=== PATIENT | female | born 1975 | race Caucasian/White ===

== ENCOUNTER 2021-11-24 06:16 | Emergency (ER) | payer OTHER, SELFPAY ==
[2021-11-24 06:24] VITALS: BMI 29.5
[2021-11-24 06:26] VITALS: BP 156/87; PULSE 70; RESP 15; TEMP 36.3; O2SAT 100
--- NOTE | 2021-11-24 06:36 | XRR_ITS ---
PROCEDURE INFORMATION: Exam: XR Chest Exam date and time: 11/24/2021 6:49 AM Age: 46 years old Clinical indication: Angina; Patient HX: Chest tightness x 4 days; Additional info: Chest pain TECHNIQUE: Imaging protocol: Radiologic exam of the chest. Views: 1 view. COMPARISON: CR Chest 1 [place] [id number] 07/01/2018 10:02 AM FINDINGS: Lungs: Unremarkable. No consolidation. Pleural spaces: Unremarkable. No pleural effusion. No pneumothorax. Heart/Mediastinum: Unremarkable. No cardiomegaly. Bones/joints: Unremarkable. XR/XR chest 1V portable [id number] IMPRESSION: No acute findings.
--- NOTE | 2021-11-24 06:36 | ECG_ITS ---
[facility] Test Date: 2021-11-24 Pat Name: Sarahy Singh Department: Room: Gender: Female [place]: : 1975 Requested By: Brendan White Order Number: [id number] Emi MD: Gi Nye M.D. Measurements Intervals [place] Rate: 73 P: 48 RI: 155 QRS: 65 QRSD: 86 T: 63 QT: 397 QTc: 439 Interpretive Statements SINUS RHYTHM Compared to ECG 07/01/2018 09:03:43 No significant changes Electronically Signed On 11-24-2021 21:23:01 CDT by Gi Nye M.D. [id number]
--- NOTE | 2021-11-24 06:45 | ED_ITS ---
HPI - Chest Pain General: Chief Complaint: Chest Pain Stated Complaint: Tightness in chest Time Seen by Provider: 11/24/21 06:32 Source: patient Mode of arrival: ambulatory Limitations: no limitations History of Present Illness: 46-year-old female presents emergency room complaining of chest tightness that goes into her left shoulder and arms been going on for the last 2 days. She has had similar episodes in the past. She has no personal or family history of early coronary disease. Patient is not diabetic. She states pain actually began in her back is like a sore area that she had someone massage that area is still exquisitely tender and then began to radiate around through the axilla into the left upper chest. She has not noticed anything beyond palpation or use of upper extremities that exacerbates or relieves. I can reproduce the pain to an extent with palpation on the lateral edge of the scapula no reproducible pain with palpation on the anterior axillary line or anterior chest wall. No associated shortness of breath or diaphoresis. MD complaint: chest pain Onset (ago): day(s) Timing of current episode: episodic Prior episodes: Yes Onset: during rest Pain location: other (Left upper back lateral edge left scapula) Pain radiation: other (Left anterior axillary line superiorly) Severity: moderate Quality: aching Relieving factors: nothing Exacerbating factors: palpation Associated symptoms: Deny abdominal pain, diaphoresis, dyspnea, fever(s), leg edema, nausea, palpitations, sense of impending doom, syncope or vomiting Treatment prior to arrival: none Review of Systems Const: Denies: fever(s), chills, fatigue, malaise or diaphoresis ENMT: Denies: throat pain, ear or mastoid pain, nasal discharge or nasal congestion Card: Reports: chest pain; Denies: palpitations or syncope Resp: Denies: dyspnea GI: Denies: abdominal pain, nausea or vomiting : Denies: flank pain, difficulty voiding, dysuria, urinary frequency or urinary urgency Skin/Breast: Denies: rash or pruritus [facility] PFSH: Medical History (Updated 11/24/21 @ 10:01 by Brendan Juárez DO) No significant past medical history Surgical History (Updated 11/24/21 @ 08:03 by Brendan Juárez DO) No significant past surgical history Social History (Updated 11/24/21 @ 08:03 by RENAN Martinez Smoking and tobacco status: never smoked Alcohol intake: never Physical Exam Const: COMMON NORMALS: no acute distress GENERAL APPEARANCE: cooperative and comfortable ORIENTATION/CONSCIOUSNESS: Yes awake, Yes oriented to person, Yes oriented to place and Yes oriented to time HENMT: COMMON NORMALS: normocephalic, atraumatic and hearing grossly normal bilaterally HEAD & SCALP: normocephalic and atraumatic Neck/C-Spine: COMMON NORMALS: no JVD Resp: COMMON NORMALS: normal respiratory effort, No retractions, No use of accessory muscles and clear to auscultation bilaterally AUSCULTATION: clear to auscultation bilaterally Cardio: COMMON NORMALS: no JVD, regular rate, regular rhythm and No murmurs present (Cardio) RATE: regular rate RHYTHM: regular rhythm GI: COMMON NORMALS: Soft to palpation and No hepatosplenomegaly present AUSCULTATION: Yes normoactive bowel sounds PALPATION: Yes Soft to palpation, No Tenderness to palpation present (GI), No Guarding due to palpation present (GI) and Yes No hepatosplenomegaly present Extremity: COMMON NORMALS: normal to inspection, capillary refill normal, no clubbing, cyanosis or edema, no calf tenderness and no pedal edema Neuro: SENSORIUM/ORIENTATION: Yes oriented to person, Yes oriented to place and Yes oriented to time Skin: COMMON NORMALS: no rashes or lesions noted GENERAL SKIN EXAM: no rash es or lesions noted Course Vital Signs: Vital signs: Vital Signs Temperature 97.4 F L 11/24/21 06:26 Pulse Rate 68 11/24/21 10:32 Respiratory Rate 16 11/24/21 10:32 Blood Pressure 140/85 11/24/21 10:32 Pulse Oximetry 99 11/24/21 10:32 MDM - Chest Pain Medical Decision Making Labs imaging and EKG reviewed. No acute EKG changes. Troponin delta is not positive. Pain symptoms are reproducible at this point. We will going get her discharged home and have her set up for outpatient sestamibi stress test. Also she has anemia recommend follow-up with primary care doctor evaluate further. Medical Records I reviewed the patient's medical records. Lab Data I reviewed the patient's lab results. : 11/24/21 06:30 11/24/21 06:30 Radiology Impressions Chest X-Ray 11/24/21 06:36 IMPRESSION: No acute findings. Laboratory Results WBC 5.1 10^3/uL (4.0-10.0) 11/24/21 06:30 RBC 4.13 10^6/uL (4.1-5.3) 11/24/21 06:30 Hgb 8.0 g/dL (11.5-15.3) L 11/24/21 06:30 Hct 27.9 % (37.0-47.0) L 11/24/21 06:30 MCV 67.6 fl (81-99) L 11/24/21 06:30 MCH 19.4 pg (28.0-34.0) L 11/24/21 06:30 MCHC 28.7 g/dL (30.0-36.0) L 11/24/21 06:30 RDW 17.1 % (12.1-15.1) H 11/24/21 06:30 Plt Count 335 10^3/cmm (130-400) 11/24/21 06:30 MPV 9.8 fL (7.4-10.4) 11/24/21 06:30 Neut % (Auto) 63.6 % 11/24/21 06:30 Lymph % (Auto) 24.1 % 11/24/21 06:30 [place] % (Auto) 10.9 % 11/24/21 06:30 Eos % (Auto) 0.8 % 11/24/21 06:30 Baso % (Auto) 0.2 % 11/24/21 06:30 Neut # (Auto) 3.27 10^3/uL (1.8-7.7) 11/24/21 06:30 Lymph # (Auto) 1.2 10^3/uL (0.8-4.8) 11/24/21 06:30 [place] # (Auto) 0.6 10^3/uL (0.2-0.9) 11/24/21 06:30 Eos # (Auto) 0.0 10^3/uL (0.0-0.8) 11/24/21 06:30 Baso # (Auto) 0.0 10^3/uL (0.0-0.1) 11/24/21 06:30 Nucleated RBC % (auto) 0 % 11/24/21 06:30 Nucleated RBCs # 0.0 /100WBC 11/24/21 06:30 Sodium 135 mmol/L (136-145) L 11/24/21 06:30 Potassium 3.8 mmol/L (3.5-5.1) 11/24/21 06:30 Chloride 102 mmol/L (98-107) 11/24/21 06:30 Carbon Dioxide 23 mmol/L (22-29) 11/24/21 06:30 Anion Gap 13.8 (5-19) 11/24/21 06:30 BUN 16 mg/dL (6-20) 11/24/21 06:30 Creatinine 0.7 mg/dL (0.5-0.9) 11/24/21 06:30 GFR Calculation 90.5 mL/min (90-130) 11/24/21 06:30 Glucose 92 mg/dL (65-115) 11/24/21 06:30 Calculated Osmolality 281 mOsm/kg (285-295) L 11/24/21 06:30 Calcium 8.5 mg/dL (8.5-10.5) 11/24/21 06:30 Total Bilirubin 0.3 mg/dL (0.15-1.2) 11/24/21 06:30 AST 12 U/L (0-32) 11/24/21 06:30 ALT 12 U/L (0-33) 11/24/21 06:30 Alkaline Phosphatase 76 IU/L (35-105) 11/24/21 06:30 Troponin T Baseline 6 ng/L (0-10) 11/24/21 06:30 Troponin T 120 Minute 6.00 ng/L (0-10) 11/24/21 08:28 Delta Troponin T 0 ABS# (0-10) 11/24/21 08:28 Total Protein 7.0 g/dL (6.6-8.7) 11/24/21 06:30 Albumin 4.2 g/dL (3.5-5.2) 11/24/21 06:30 Globulin 2.8 g/dL (1.3-4.6) 11/24/21 06:30 Discharge Plan Discharge Patient Disposition: Home Clinical Impression: Atypical chest pain, Microcytic anemia Condition: Stable Discharge Orders: Discharge ED (Routine); Ordered 11/24/21 Ordered By: Brendan Juárez Discharge Diet: Usual diet Discharge Activity: Limit activity as instructed Patient Instructions: Opioid Safety Activity Restrictions/Additional Instructions: Avoid strenuous activity. Follow-up with your primary care doctor to further evaluate the anemia. manager alliance will make arrangements for an outpatient Lexiscan sestamibi stress test. Return if you have further problems. Coding Level of Care Code ED Pump Rebuilder for Chg Fwd Exam Comprehensive
[2021-11-24 06:56] VITALS: BP 140/85; PULSE 69; RESP 16; O2SAT 100
[2021-11-24 06:56] LABS: Basophils % 0.2 %; Eosinophils % 0.8 %; Hematocrit 27.9 % (37.0-47.0); Lymphocytes # 1.2 10^3/uL (0.8-4.8); Lymphocytes % 24.1 %; Mean Corpuscular HGB Conc 28.7 g/dL (30.0-36.0); Mean Corpuscular Hemoglobin 19.4 pg (28.0-34.0); Mean Corpuscular Volume 67.6 fl (81-99); Mean Platelet Volume 9.8 fL (7.4-10.4); Monocytes # 0.6 10^3/uL (0.2-0.9); Monocytes % 10.9 %; Neutrophils # 3.27 10^3/uL (1.8-7.7); Neutrophils % 63.6 %; Nucleated Red Blood Cells % 0 %; Platelet Count 335 10^3/cmm (130-400); Red Blood Count 4.13 10^6/uL (4.1-5.3); Red Cell Distribution Width 17.1 % (12.1-15.1); White Blood Count 5.1 10^3/uL (4.0-10.0)
[2021-11-24 06:58] LABS: Alanine Aminotransferase 12 U/L (0-33); Albumin Level 4.2 g/dL (3.5-5.2); Alkaline Phosphatase 76 IU/L (35-105); Anion Gap 13.8 (5-19); Aspartate Amino Transferase 12 U/L (0-32); Blood Urea Nitrogen 16 mg/dL (6-20); Calcium 8.5 mg/dL (8.5-10.5); Carbon Dioxide 23 mmol/L (22-29); Chloride 102 mmol/L (98-107); Globulin 2.8 g/dL (1.3-4.6); Glomerular Filtration Rate 90.5 mL/min (90-130); Glucose 92 mg/dL (65-115); Osmolality Calculated 281 mOsm/kg (285-295); Potassium 3.8 mmol/L (3.5-5.1); Sodium 135 mmol/L (136-145); Total Bilirubin 0.3 mg/dL (0.15-1.2)
[2021-11-24 07:01] LABS: Troponin(5th) Baseline 6 ng/L (0-10)
[2021-11-24] MEDS: aspirin 81 mg Chew Tablet 324 MG PO (07:21)
--- NOTE | 2021-11-24 08:13 | PC.NURSE ---
EKG done at 0810 and shown to ER doctor
--- NOTE | 2021-11-24 08:36 | ECG_ITS ---
[facility] Test Date: 2021-11-24 Pat Name: Sarahy Singh Department: Room: Gender: Female Direct Care Professional: : 1975 Requested By: Brendan White Order Number: [id number] Emi MD: Gi Nye M.D. Measurements Intervals [place] Rate: 66 P: 55 [place]: 176 QRS: 68 QRSD: 90 T: 64 QT: 443 QTc: 465 Interpretive Statements SINUS RHYTHM WITH SINUS ARRHYTHMIA Compared to ECG 11/24/2021 06:26:53 No significant changes Electronically Signed On 11-24-2021 21:30:48 CDT by Gi Nye M.D. [email or web address]/store/[id number]
[2021-11-24 09:32] VITALS: BP 140/85; PULSE 68; RESP 16; O2SAT 99
[2021-11-24 09:55] LABS: Troponin 5 2HR Delta 0 ABS# (0-10)
[2021-11-24 10:32] VITALS: BP 140/85; PULSE 68; RESP 16; O2SAT 99
--- NOTE | 2021-11-28 17:15 | DCPLANNER ---
sr. manager had message to schedule an outpatient stress for patient. sr. manager called patient to confirm that patient wanted the stress test, and to confirm who patient sees for primary care. Patient stated that she sees Dr. Thomas for primary care, and that she discussed her ER visit with her primary care physician and it was decided that patient does not need the stress test at this time.
== END 2021-11-24 10:35 | disposition home or self-care (01) ==
PROVIDERS: Emergency Provider Family Medicine
DX: R07.89 Other chest pain (principal); D50.9 Iron deficiency anemia, unspecified
CPT/HCPCS: 71045; 80053; 84484; 85025; 93005; 99285

== ENCOUNTER → 2022-01-14 07:55 | Day surgery (SDC) | payer OTHER, SELFPAY ==
[2022-01-14 08:03] VITALS: BP 154/82; PULSE 78; RESP 18; TEMP 36.1; O2SAT 100
[2022-01-14] MEDS: ferric carboxy (IVPB) 750 MG in sodium chloride 0.9% (100 ml) 100 ML 345 MG IV (08:44)
== END ==
PROVIDERS: PCP Family Medicine; Visit Provider Family Medicine
DX: D50.9 Iron deficiency anemia, unspecified (principal)
CPT/HCPCS: 96365; J1439

== ENCOUNTER → 2022-01-21 07:52 | Day surgery (SDC) | payer OTHER, SELFPAY ==
[2022-01-21] MEDS: ferric carboxy (IVPB) 750 MG in sodium chloride 0.9% (100 ml) 100 ML 345 MG IV (08:00)
[2022-01-21 08:42] VITALS: BP 149/85; PULSE 64; RESP 18; TEMP 36.1; O2SAT 99
== END ==
LOC: GILAB 07:53
PROVIDERS: PCP Family Medicine; Visit Provider Family Medicine
DX: D50.9 Iron deficiency anemia, unspecified (principal)
CPT/HCPCS: 96365; J1439

== ENCOUNTER 2022-07-11 20:10 | Emergency (ER) | payer OTHER, SELFPAY ==
[2022-07-11 20:24] VITALS: BP 149/94; PULSE 69; RESP 18; TEMP 36.3; O2SAT 96; BMI 32.5
--- NOTE | 2022-07-11 21:07 | XRR_ITS ---
PROCEDURE INFORMATION: Exam: XR Thoracic Spine Exam date and time: 07/11/2022 9:53 PM Age: 47 years old Clinical indication: Pain in thoracic spine; Patient HX: Mid back pain after bending over TECHNIQUE: Imaging protocol: Radiologic exam of the thoracic spine. Views: 3 views. COMPARISON: CR XR chest 1V portable [id number] 11/24/2021 6:49 AM FINDINGS: Bones/joints: There is no acute fracture or subluxation by plain radiographs. Mild intervertebral disc space narrowing at multiple levels. Minimal disc margin spurring. Soft tissues: No significant acute finding. XR/XR thoracic spine 2V [id number] IMPRESSION: 1. No acute fracture or subluxation. 2. Other details discussed above.
[2022-07-11] MEDS: oxyCODONE-APAP 5-325 mg Tablet 2 TAB PO (21:16)
--- NOTE | 2022-07-11 21:42 | W.ED.BACK ---
HPI - Back Pain/Injury General: Chief Complaint: Back Pain/Injury Stated Complaint: back pain Time Seen by Provider: 07/11/22 20:40 Source: patient History of Present Illness: 47-year-old female with mid lower back pain after bending over to set her Down earlier in the evening. She has had back pain on and off all of her life she says. Pain is localized to the lower thoracic spine on the left greater than right side. She felt a pulling sensation when this happened. She took a methocarbamol at home without any relief. She denies any fever. No change in urine. No other symptoms. No radicular pain into her legs, no paresthesias, no weakness. MD elicited complaint: back pain and back injury Pertinent past history: prior back pain Onset (ago): hour(s) Timing: constant Severity: moderate Similar Symptoms Previously: Yes Quality: aching and spasming Location: thoracic spine Radiation: none Exacerbating factors: movement Relieving factors: none Context: bending Associated symptoms: Deny abdominal pain, arthralgias, chills, difficulty walking, dysuria, fatigue, fever(s), nausea, numbness, syncope, tingling/numbness/burning, vomiting or weakness Review of Systems Const: Denies: fever(s), chills or fatigue Card: Denies: syncope GI: Denies: abdominal pain, nausea or vomiting : Denies: flank pain, difficulty voiding or dysuria Neuro: Denies: difficulty walking [facility] PFSH: Medical History No significant past medical history Surgical History No significant past surgical history Social History Smoking and tobacco status: never smoked Alcohol intake: never Physical Exam Const: COMMON NORMALS: no acute distress GENERAL APPEARANCE: cooperative; not ill appearing and not frail appearing HENMT: COMMON NORMALS: normocephalic, atraumatic and Normal external nose present HEAD & SCALP: normocephalic and atraumatic FACE & SINUS: normal facial exam and face symmetric NOSE: Normal external nose present Eye: COMMON NORMALS: Equal, round and reactive pupils present and EOMs intact bilaterally PUPIL: Yes Equal, round and reactive pupils present Neck/C-Spine: GENERAL: Yes trachea midline Chest: CHEST: Yes Symmetrical chest wall rise Resp: COMMON NORMALS: normal respiratory effort, No retractions and No use of accessory muscles Cardio: COMMON NORMALS: regular rate and regular rhythm RATE: regular rate RHYTHM: regular rhythm GI: INSPECTION: Yes normal to inspection Back/Pelvis: OTHER: Examination reveals minimally reproducible tenderness to the thoracolumbar spinal musculature. There is no midline tenderness. Straight leg raise test is negative bilaterally. No deformity. Extremity: COMMON NORMALS: no pedal edema Neuro: HEMALATHA COMA SCALE: document GCS findings [place] coma scale eye opening: Spontaneous Hemalatha coma scale verbal response: Orientated [place] coma scale motor response: Obey commands [place] coma scale total score: 15 SENSORY EXAM: Yes extremities (intact) Psych: COMMON NORMALS: speech normal SPEECH: Yes normal speech Course Vital Signs: Vital signs: Vital Signs Temperature 97.4 F L 07/11/22 20:24 Pulse Rate 78 07/11/22 22:53 Respiratory Rate 18 07/11/22 22:53 Blood Pressure 138/75 07/11/22 22:53 Pulse Oximetry 97 07/11/22 22:53 Oxygen Delivery Me thod 07/11/22 20:24 MDM - Back Pain/Injury Medical Decision Making No radicular symptoms. No neurological symptoms. X-ray does not reveal any acute deformity such as a compression fracture or significant disc space loss. Labs Radiology Impressions Thoracic Spine X-Ray 07/11/22 21:07 IMPRESSION: 1. No acute fracture or subluxation. 2. Other details discussed above. Discharge Plan Discharge Patient Disposition: Home Clinical Impression: Thoracic myofascial strain Condition: Stable Prescriptions: New hydrocodone-acetaminophen 5-325 mg tablet 1 tab PO Q8H PRN (Reason: pain) Qty: 7 0RF ketorolac 10 mg tablet 10 mg PO TID PRN (Reason: pain) Qty: 10 0RF No Action valacyclovir 1 gram tablet 1,000 mg PO Q8H 7 Days Qty: 21 0RF pantoprazole 40 mg tablet,delayed release (DR/EC) 40 mg PO DAILY ferrous gluconate 324 mg (38 mg iron) tablet 324 mg PO DAILY Discharge Orders: Discharge ED (Routine); Ordered 07/11/22 Ordered By: Ignacio Gallegos Referrals: David Thomas MD [Primary Care Provider] - 1-3 days Patient Instructions: Thoracic Pain (ED), Opioid Safety, Pain Management Activity Restrictions/Additional Instructions: Return for fever, any other new or concerning symptoms. See your doctor early this week. Medication as directed. They will help the best in alternating fashion. Coding Level of Care Code ED Furnace Clerk for Chg Fwd Exam Comprehensive
[2022-07-11 22:53] VITALS: BP 138/75; PULSE 78; RESP 18; O2SAT 97
== END 2022-07-11 22:54 | disposition home or self-care (01) ==
PROVIDERS: Emergency Provider Emergency Medicine; PCP Family Medicine
DX: S29.012A Strain of muscle and tendon of back wall of thorax, initial encounter (principal); X50.1XXA Overexertion from prolonged static or awkward postures, initial encounter
CPT/HCPCS: 72070; 99283

== ENCOUNTER 2022-12-30 09:25 | Outpatient (CLI) | payer OTHER, SELFPAY ==
--- NOTE | 2022-12-30 09:54 | XR_ITS ---
WS: [id number] EXAMINATION: XR wrist RT min 3V* [id number] REASON FOR EXAM: R WRIST SPRAIN COMPARISON: None available. ORDER DATE: 12/30/2022 9:57 AM FINDINGS: There is no sign of any acute osseous or articular abnormality. There are no specific soft tissue abn ormalities. XR/XR wrist RT min 3V* [id number] IMPRESSION: No acute change
== END 2022-12-30 09:26 | disposition home or self-care (01) ==
PROVIDERS: PCP Family Medicine; Visit Provider Family Medicine
DX: S63.591A Other specified sprain of right wrist, initial encounter (principal); X58.XXXA Exposure to other specified factors, initial encounter
CPT/HCPCS: 73110

== ENCOUNTER 2023-01-26 14:10 | Outpatient (RCR) | payer OTHER, SELFPAY | END 2023-02-04 23:59 | disposition home or self-care (01) | LOC: SOT 14:10 | PROVIDERS: PCP Family Medicine; Visit Provider Family Medicine | DX: S63.591A Other specified sprain of right wrist, initial encounter (principal); X58.XXXA Exposure to other specified factors, initial encounter | CPT/HCPCS: 97022; 97110; 97166; 97530; G0283 ==

== ENCOUNTER 2023-02-05 06:00 | Outpatient (RCR) | payer OTHER, SELFPAY | END 2023-03-06 23:59 | disposition home or self-care (01) | LOC: SOT 06:00 | PROVIDERS: PCP Family Medicine; Visit Provider Family Medicine | DX: S63.591D Other specified sprain of right wrist, subsequent encounter (principal); X50.0XXD Overexertion from strenuous movement or load, subsequent encounter | CPT/HCPCS: 97022; 97110; 97140; G0283 ==

== ENCOUNTER 2023-03-07 06:00 | Outpatient (RCR) | payer OTHER, SELFPAY | END 2023-04-06 23:59 | disposition home or self-care (01) | LOC: SOT 06:00 | PROVIDERS: PCP Family Medicine; Visit Provider Family Medicine | DX: S63.591D Other specified sprain of right wrist, subsequent encounter (principal); X58.XXXD Exposure to other specified factors, subsequent encounter | CPT/HCPCS: 97022; 97110; 97140 ==

== ENCOUNTER 2024-04-20 06:00 | Outpatient (RCR) | payer OTHER, SELFPAY | END 2024-05-06 23:59 | disposition home or self-care (01) | LOC: SPT 06:00 | PROVIDERS: Visit Provider Family Medicine | DX: M54.40 Lumbago with sciatica, unspecified side (principal) | CPT/HCPCS: 97110; 97161 ==

== ENCOUNTER 2024-05-07 06:00 | Outpatient (RCR) | payer OTHER, SELFPAY | END 2024-06-06 23:59 | disposition home or self-care (01) | LOC: SPT 06:00 | PROVIDERS: PCP Family Medicine; Visit Provider Family Medicine | DX: M54.40 Lumbago with sciatica, unspecified side (principal) | CPT/HCPCS: 20560; 97110 ==

== ENCOUNTER 2024-05-08 09:11 | Outpatient (CLI) | payer OTHER, SELFPAY ==
--- NOTE | 2024-05-08 09:15 | MR_ITS ---
WS: [id number] MRI LUMBAR SPINE NONCONTRAST HISTORY: LUMBAGO W/SCIATICA COMPARISON: None available. TECHNIQUE: Sagittal and axial multisequence imaging is submitted. Localizer demonstrates cervical disc disease with mild contact on the cervical cord at C5-6 and C6-7. 2 mm retrolisthesis of L3 and L4. No acute fracture. Disc spaces are mildly desiccated and narrowed throughout the lumbar spine. Conus terminates normally at L1-2 disc level. L1-L2: Mild facet arthritis. No stenosis. L2-L3: Mild asymmetric disc bulging. Moderate to large LEFT foraminal disc protrusion with minimal co ntact on the exiting LEFT L2 nerve root. There is slight encroachment upon the LEFT subarticular rece ss. Ligamentum flavum and facet arthritis. L3-L4: Diffuse disc bulging with asymmetric LEFT foraminal disc protrusion. There is mild disc contac t on the traversing LEFT L4 nerve root. Mild central and LEFT subarticular recess encroachment. L4-L5: Diffuse annular disc bulging with asymmetric ligamentum flavum hypertrophy, LEFT greater than RIGHT. Large RIGHT subarticular and proximal foraminal disc protrusion measures 1.4 cm transversely. Disc protrusion extends 1.2 cm below the disc level. There is significant contact and deformity of th e thecal sac and the nerve roots. Central stenosis with most significant contact on the traversing RI GHT L5 nerve root. Lesser encroachment upon the traversing LEFT L5 nerve root. L5-S1: Mild disc bulging. Shallow LEFT foraminal broad-based disc protrusion with minimal contact on the exiting LEFT L5 nerve root. Paravertebral soft tissues are negative. MR/MR lumbar spine wo con* [id number] IMPRESSION: 1. L4-5: Large RIGHT subarticular recess and proximal foraminal disc protrusio n measures 1.4 cm transversely. Disc is extruded caudal to the disc level by 1. 2 cm. There is significant encroachment upon the ventral thecal sac and the ner ve roots. Significant displacement of the RIGHT traversing L5 nerve root. 2. L4-5: Central stenosis with lesser encroachment upon the traversing LEFT L5 nerve root. 3. L2-3: Moderate to large LEFT foraminal disc protrusion with minimal contact on the exiting LEFT L2 nerve root. Mild encroachment upon the LEFT subarticula r recess. 4. L3-4: Asymmetric LEFT foraminal disc protrusion with mild contact on the tr aversing LEFT L4 nerve root. Mild central and LEFT subarticular recess encroach ment. 5. L5-S1: Shallow LEFT foraminal disc protrusion with minimal contact on the e xiting LEFT L5 nerve root.
== END 2024-05-08 09:12 | disposition home or self-care (01) ==
LOC: RAD 09:12
PROVIDERS: PCP Family Medicine; Visit Provider Family Medicine
DX: M43.16 Spondylolisthesis, lumbar region (principal); M51.26 Other intervertebral disc displacement, lumbar region; M51.360 Other intervertebral disc degeneration, lumbar region with discogenic back pain only; M48.061 Spinal stenosis, lumbar region without neurogenic claudication
CPT/HCPCS: 72148

== ENCOUNTER 2024-06-07 06:00 | Outpatient (RCR) | payer OTHER, SELFPAY | END 2024-06-13 23:59 | disposition home or self-care (01) | LOC: SPT 06:00 | PROVIDERS: PCP Family Medicine; Visit Provider Family Medicine | DX: M54.40 Lumbago with sciatica, unspecified side (principal) | CPT/HCPCS: 97110 ==

== ENCOUNTER 2024-08-10 00:19 | Emergency (ER) | payer OTHER, SELFPAY ==
[2024-08-10 00:23] VITALS: BP 151/72; PULSE 74; RESP 16; TEMP 36.4; O2SAT 98
--- NOTE | 2024-08-10 00:41 | W.ED.BACK ---
HPI - Back Pain/Injury General: Chief Complaint: Back Pain/Injury Stated Complaint: Back Pain Time Seen by Provider: 08/10/24 00:37 History of Present Illness: Patient presents to the ER with left-sided back pain, sciatica that radiates around to the left groin. She said this been going on for the past several days. She was seen at a walk-in clinic received Decadron injection Flexeril and ibuprofen but she said that has not touched it. She did have some old tramadol at home she used and it did not help either. She had recent MRI around in April but says she has bulging disc that is pinching on nerve roots. She went through a round of physical therapy which seemed to help then. She does not not know what triggered this episode, denies any trauma or overuse. Denies any fecal urinary incontinence or retention. Related Data Home Medications ?Medication ?Instructions ?Recorded ?Confirmed pantoprazole 40 mg tablet,delayed 40 mg PO DAILY 01/14/22 08/07/24 release irbesartan 75 mg tablet 75 mg PO DAILY 11/21/23 08/07/24 hydrochlorothiazide 25 mg tablet mg PO 02/20/24 08/07/24 Previous Rx's ?Medication ?Instructions ?Recorded methocarbamol 750 mg tablet 750 mg PO TID #30 tabs 04/18/24 tramadol 50 mg tablet 50 mg PO Q6H PRN pain 7 days #28 04/18/24 tabs cyclobenzaprine 5 mg tablet 5 mg PO TID PRN muscle spasm #14 08/07/24 tabs ibuprofen 600 mg tablet (IBU) 600 mg PO Q8H PRN pain #20 tabs 08/07/24 hydrocodone 5 mg-acetaminophen 325 1 tab PO Q6H PRN pain #14 tabs 08/10/24 mg tablet prednisone 50 mg tablet 50 mg PO DAILY #5 tabs 08/10/24 Allergies Allergy/AdvReac Type Severity Reaction Status Date / Time No Known Allergies Allergy Verified 08/10/24 00:23 Review of Systems General: Reports: 10 or more systems reviewed and unremarkable except in HPI and below PFSH ED PFSH: Medical History No significant past medical history Surgical History No significant past surgical history Social History Smoking and tobacco/nicotine status: never used tobacco/nicotine Alcohol intake: never Physical Exam Const: COMMON NORMALS: no acute distress, average body habitus, patient oriented x3, no limitations, healthy appearing, alert and well nourished HENMT: COMMON NORMALS: normocephalic, atraumatic, hearing grossly normal bilaterally, external ears normal, Normal external nose present, moist oral mucous membranes and oropharynx normal HEAD & SCALP: normocephalic and atraumatic NOSE: Normal external nose present EXTERNAL EAR: Yes external ears normal Neck/C-Spine: COMMON NORMALS: no JVD Chest: COMMONS NORMALS: normal inspection of the chest and normal palpation of entire chest wall Resp: COMMON NORMALS: normal respiratory effort, No retractions, No use of accessory muscles and clear to auscultation bilaterally AUSCULTATION: clear to auscultation bilaterally Cardio: COMMON NORMALS: no JVD, regular rate, regular rhythm, S1 normal heart sound present, S2 normal heart sound present, No gallops present (Cardio), No clicks present (Cardio), No murmurs present (Cardio) and No rub (Cardio) RATE: regular rate RHYTHM: regular rhythm HEART SOUNDS: S1 normal heart sound present and S2 normal heart sound present GI: COMMON NORMALS: Normal to inspection, nondistended, normoactive bowel sounds present, Soft to palpation, non-tender, No hepatosplenomegaly present and no masses PALPATION: Yes Soft to palpation and Yes No hepatosplenomegaly present Back/Pelvis: OTHER: Tender to palpate left lumbar paraspinal musculature. No obvious step-off crepitus or deformity Neuro: COMMON NORMALS: patient oriented x3 SENSORIUM/ORIENTATION: Yes alert Course Vital Signs: Vital signs: Vital Signs Temperature 97.5 F L 08/10/24 00:23 Pulse Rate 74 08/10/24 00:23 Respiratory Rate 16 08/10/24 00:23 Blood Pressure 151/72 08/10/24 00:23 Pulse Oximetry 98 08/10/24 00:23 Oxygen Delivery Me thod Room Air 08/10/24 00:23 MDM - Back Pain/Injury Medical Decision Making MRI of back was reviewed, patient was given Toradol and Norflex 60 mg IM which she said helped minimally but made her drowsy. Patient does not want any more pain meds here but will take a prescription to go home 1. No radiology studies performed this visit Discharge Plan Discharge Patient Disposition: Home Clinical Impression: Lumbar radiculopathy Condition: Stable Prescriptions: New hydrocodone-acetaminophen 5-325 mg tablet 1 tab PO Q6H PRN (Reason: pain) Qty: 14 0RF prednisone 50 mg tablet 50 mg PO DAILY Qty: 5 0RF No Action irbesartan 75 mg tablet 75 mg PO DAILY hydrochlorothiazide 25 mg tablet PO tramadol 50 mg tablet 50 mg PO Q6H PRN (Reason: pain) 7 Days Qty: 28 0RF methocarbamol 750 mg tablet 750 mg PO TID Qty: 30 0RF ibuprofen [IBU] 600 mg tablet 600 mg PO Q8H PRN (Reason: pain) Qty: 20 0RF cyclobenzaprine 5 mg tablet 5 mg PO TID PRN (Reason: muscle spasm) Qty: 14 0RF pantoprazole 40 mg tablet,delayed release (DR/EC) 40 mg PO DAILY Discharge Orders: Discharge ED (Routine); Ordered 08/10/24 Ordered By: Luis Palma Referrals: David Thomas MD [Primary Care Provider] - Patient Instructions: Opioid Safety, Pain Management Print Language: Mauritian Coding Level of Care Code ED Post Tensioning Ironworker Helper for Nathan Sultana
[2024-08-10] MEDS: ketorolac 60 mg/2 mL INJ IM (01:01)
[2024-08-10] MEDS: orphenadrine 30 mg/mL Inj 2 mL 60 MG IM (01:02)
[2024-08-10 02:25] VITALS: BP 156/68; PULSE 75; O2SAT 100
== END 2024-08-10 02:20 | disposition home or self-care (01) ==
PROVIDERS: Emergency Provider Emergency Medicine; PCP Family Medicine
DX: M54.16 Radiculopathy, lumbar region (principal)
CPT/HCPCS: 96372; 99284; J1885; J2360

== ENCOUNTER 2024-08-10 07:40 | Emergency (ER) | payer OTHER, SELFPAY ==
[2024-08-10 07:56] VITALS: BP 144/71; PULSE 78; RESP 16; TEMP 36.8; O2SAT 100; BMI 30.7
[2024-08-10] MEDS: orphenadrine 30 mg/mL Inj 2 mL 60 MG IM (08:51)
[2024-08-10] MEDS: ketorolac 30 mg/mL INJ IM (08:51)
[2024-08-10] MEDS: dexamethasone 10 mg/mL INJ IM (08:51)
[2024-08-10] MEDS: ondansetron 2 mg/ML SDV 2 mL 4 MG IM (08:51)
[2024-08-10 10:30] VITALS: BP 134/79; PULSE 75; O2SAT 100
--- NOTE | 2024-08-10 10:47 | W.ED.BACK ---
Documented by User: Brendan Juárez DO 08/11/24 13:18 HPI - Back Pain/Injury General: Chief Complaint: Back Pain/Injury Stated Complaint: back pain Time Seen by Provider: 08/10/24 08:21 History of Present Illness: Associated symptoms: Deny abdominal pain, chills, dysuria, fever(s) or urinary urgency Related Data Home Medications ?Medication ?Instructions ?Recorded ?Confirmed pantoprazole 40 mg tablet,delayed 40 mg PO DAILY 01/14/22 08/10/24 release hydrochlorothiazide 25 mg tablet 25 mg PO DAILY 02/20/24 08/10/24 irbesartan 150 mg tablet 150 mg PO DAILY 08/10/24 08/10/24 Previous Rx's ?Medication ?Instructions ?Recorded tramadol 50 mg tablet 50 mg PO Q6H PRN pain 7 days #28 04/18/24 tabs cyclobenzaprine 5 mg tablet 5 mg PO TID PRN muscle spasm #14 08/07/24 tabs ibuprofen 600 mg tablet (IBU) 600 mg PO Q8H PRN pain #20 tabs 08/07/24 hydrocodone 5 mg-acetaminophen 325 1 tab PO Q6H PRN pain #14 tabs 08/10/24 mg tablet Allergies Allergy/AdvReac Type Severity Reaction Status Date / Time No Known Allergies Allergy Verified 08/10/24 00:23 Review of Systems Const: Denies: fever(s) or chills Card: Denies: chest pain Resp: Denies: dyspnea GI: Denies: abdominal pain : Denies: dysuria, urinary frequency or urinary urgency Musc: Denies: neck pain or back pain Skin/Breast: Denies: rash PFS ED PFSH: Medical History No significant past medical history Surgical History No significant past surgical history Social History Smoking and tobacco/nicotine status: never used tobacco/nicotine Alcohol intake: never Physical Exam Const: COMMON NORMALS: no acute distress GENERAL APPEARANCE: cooperative and comfortable ORIENTATION/CONSCIOUSNESS: Yes awake, Yes oriented to person, Yes oriented to place and Yes oriented to time HENMT: COMMON NORMALS: normocephalic, atraumatic and hearing grossly normal bilaterally HEAD & SCALP: normocephalic and atraumatic Resp: COMMON NORMALS: normal respiratory effort, No retractions, No use of accessory muscles and clear to auscultation bilaterally AUSCULTATION: clear to auscultation bilaterally Cardio: COMMON NORMALS: regular rate, regular rhythm and No murmurs present (Cardio) RATE: regular rate RHYTHM: regular rhythm GI: COMMON NORMALS: Soft to palpation and No hepatosplenomegaly present AUSCULTATION: Yes normoactive bowel sounds PALPATION: Yes Soft to palpation, No Tenderness to palpation present (GI), No Guarding due to palpation present (GI) and Yes No hepatosplenomegaly present Extremity: COMMON NORMALS: normal to inspection, capillary refill normal, no clubbing, cyanosis or edema, no calf tenderness and no pedal edema Neuro: SENSORIUM/ORIENTATION: Yes oriented to person, Yes oriented to place and Yes oriented to time Skin: COMMON NORMALS: no rashes or lesions noted GENERAL SKIN EXAM: no rashes or lesions noted Course Vital Signs: Vital signs: Vital Signs Temperature 98.3 F 08/10/24 07:56 Pulse Rate 77 08/10/24 13:04 Respiratory Rate 16 08/10/24 07:56 Blood Pressure 136/97 08/10/24 13:04 Pulse Oximetry 100 08/10/24 13:04 Oxygen Delivery Me thod Room Air 08/10/24 10:30 MDM - Back Pain/Injury Medical Decision Making Was called to emergency another port at the hospital. Care signed out to Dr. Sams at change of shift. See final notes for diagnosis and disposition. Patient presents with low back pain has a history of back pain she has no signs of cord compression or epidural abscess her pain has improved here she is seen here last night has not filled her meds it was written to where she is to fill those meds we will get her follow-up with Dr. Randle she is return if worsening. Discharge Plan Discharge Patient Disposition: Home Clinical Impression: Low back pain Condition: Stable Prescriptions: No Action hydrochlorothiazide 25 mg tablet 25 mg PO DAILY tramadol 50 mg tablet 50 mg PO Q6H PRN (Reason: pain) 7 Days Qty: 28 0RF ibuprofen [IBU] 600 mg tablet 600 mg PO Q8H PRN (Reason: pain) Qty: 20 0RF cyclobenzaprine 5 mg tablet 5 mg PO TID PRN (Reason: muscle spasm) Qty: 14 0RF pantoprazole 40 mg tablet,delayed release (DR/EC) 40 mg PO DAILY hydrocodone-acetaminophen 5-325 mg tablet 1 tab PO Q6H PRN (Reason: pain) Qty: 14 0RF irbesartan 150 mg tablet 150 mg PO DAILY Discharge Orders: Discharge ED (Routine); Ordered 08/10/24 Ordered By: Uma Sams Referrals: Mono Marin DO [Physician] - 4-7 days David Thomas MD [Primary Care Provider] - Discharge Diet: Advance as tolerated Discharge Activity: Resume usual activity Patient Instructions: Back Pain (ED) Print Language: Mongolian Coding Level of Care Code ED Prisoner Classification Interviewer for Chg Fwd Documented by User: Uma Sams MD 08/10/24 12:58 HPI - Back Pain/Injury General: Chief Complaint: Back Pain/Injury Stated Complaint: back pain Time Seen by Provider: 08/10/24 08:21 Source: patient Mode of arrival: ambulatory Limitations: no limitations History of Present Illness: 41-year-old female that history of back pain in the past she had had a MRI done in May states she has had some ongoing back pain states the pain has gotten much worse over the last few days she was seen here last night was prescribed prednisone and hydrocodone states she has not been able to fill her prescription and she is having pain again this morning its on the right side of her back slight radiation she denies any bowel or bladder incontinence denies any difficulty walking. Related Data Home Medications ?Medication ?Instructions ?Recorded ?Confirmed pantoprazole 40 mg tablet,delayed 40 mg PO DAILY 01/14/22 08/10/24 release hydrochlorothiazide 25 mg tablet 25 mg PO DAILY 02/20/24 08/10/24 irbesartan 150 mg tablet 150 mg PO DAILY 08/10/24 08/10/24 Previous Rx's ?Medication ?Instructions ?Recorded tramadol 50 mg tablet 50 mg PO Q6H PRN pain 7 days #28 04/18/24 tabs cyclobenzaprine 5 mg tablet 5 mg PO TID PRN muscle spasm #14 08/07/24 tabs ibuprofen 600 mg tablet (IBU) 600 mg PO Q8H PRN pain #20 tabs 08/07/24 hydrocodone 5 mg-acetaminophen 325 1 tab PO Q6H PRN pain #14 tabs 08/10/24 mg tablet Allergies Allergy/AdvReac Type Severity Reaction Status Date / Time No Known Allergies Allergy Verified 08/10/24 00:23 PFS ED PFSH: Medical History No significant past medical history Surgical History No significant past surgical history Social History Smoking and tobacco/nicotine status: never used tobacco/nicotine Alcohol intake: never Course Vital Signs: Vital signs: Vital Signs Temperature 98.3 F 08/10/24 07:56 Pulse Rate 77 08/10/24 13:04 Respiratory Rate 16 08/10/24 07:56 Blood Pressure 136/97 08/10/24 13:04 Pulse Oximetry 100 08/10/24 13:04 Oxygen Delivery Me thod Room Air 08/10/24 10:30 MDM - Back Pain/Injury Medical Decision Making Patient presents with low back pain has a history of back pain she has no signs of cord compression or epidural abscess her pain has improved here she is seen here last night has not filled her meds it was written to where she is to fill those meds we will get her follow-up with Dr. Randle she is return if worsening. Medical Records I reviewed the patient's medical records. No radiology studies performed this visit Discharge Plan Discharge Patient Disposition: Home Clinical Impression: Low back pain Condition: Stable Prescriptions: No Action hydrochlorothiazide 25 mg tablet 25 mg PO DAILY tramadol 50 mg tablet 50 mg PO Q6H PRN (Reason: pain) 7 Days Qty: 28 0RF ibuprofen [IBU] 600 mg tablet 600 mg PO Q8H PRN (Reason: pain) Qty: 20 0RF cyclobenzaprine 5 mg tablet 5 mg PO TID PRN (Reason: muscle spasm) Qty: 14 0RF pantoprazole 40 mg tablet,delayed release (DR/EC) 40 mg PO DAILY hydrocodone-acetaminophen 5-325 mg tablet 1 tab PO Q6H PRN (Reason: pain) Qty: 14 0RF irbesartan 150 mg tablet 150 mg PO DAILY Discharge Orders: Discharge ED (Routine); Ordered 08/10/24 Ordered By: Uma Sams Referrals: Mono Marin DO [Physician] - 4-7 days David Thomas MD [Primary Care Provider] - Discharge Diet: Advance as tolerated Discharge Activity: Resume usual activity Patient Instructions: Back Pain (ED) Print Language: Mongolian Coding Level of Care Code ED Prisoner Classification Interviewer for Nathan Sultana
[2024-08-10] MEDS: HYDROMORPHONE HCL 0.5 MG/0.5 ML INJ IVP (11:02)
[2024-08-10 13:04] VITALS: BP 136/97; PULSE 77; O2SAT 100
== END 2024-08-10 13:05 | disposition home or self-care (01) ==
PROVIDERS: Emergency Provider Emergency Medicine; PCP Family Medicine
DX: M54.50 Low back pain, unspecified (principal)
CPT/HCPCS: 96372; 96374; 99284; J1100; J1171; J1885; J2360; J2405

== ENCOUNTER 2024-08-29 13:11 | Outpatient (RCR) | payer OTHER, SELFPAY | END 2024-09-04 23:59 | disposition home or self-care (01) | LOC: SPT 13:11 | PROVIDERS: Visit Provider Family Medicine | DX: M54.16 Radiculopathy, lumbar region (principal); M51.26 Other intervertebral disc displacement, lumbar region | CPT/HCPCS: 20560; 97110; 97161 ==

== ENCOUNTER 2024-09-05 06:00 | Outpatient (RCR) | payer OTHER, SELFPAY | END 2024-10-04 23:59 | disposition home or self-care (01) | LOC: SPT 06:00 | PROVIDERS: Visit Provider Family Medicine | DX: M51.26 Other intervertebral disc displacement, lumbar region (principal) | CPT/HCPCS: 20560; 97110 ==

== ENCOUNTER 2024-10-05 06:30 | Outpatient (RCR) | payer OTHER, SELFPAY | END 2024-10-17 12:44 | disposition home or self-care (01) | LOC: SPT 06:30 | PROVIDERS: Visit Provider Family Medicine | DX: M51.26 Other intervertebral disc displacement, lumbar region (principal) | CPT/HCPCS: 97110 ==

== ENCOUNTER 2024-11-08 14:21 | Outpatient (CLI) | payer OTHER, SELFPAY ==
--- NOTE | 2024-11-08 14:22 | MM_ITS ---
WS: [id number] BILATERAL 3D TOMOSYNTHESIS DIGITAL SCREENING MAMMOGRAPHY WITH CAD CLINICAL INFORMATION: SCREENING HISTORY: Screening mammogram. No current complaints. COMPARISON: Baseline TECHNIQUE: Bilateral CC and MLO views. FINDINGS: Scattered fibroglandular densities bilaterally. No suspicious focal mass, asymmetry, calcifications, or architectural distortion. No evidence of malignancy. MM/MM scr BI tomosynthesis [id number] IMPRESSION: DENSITY: There are scattered areas of fibroglandular density. BI-RADS: 1 - Negative. FOLLOW UP: 1 Year Follow-up Recommend return to annual screening mammography.
== END 2024-11-08 14:22 | disposition home or self-care (01) ==
PROVIDERS: PCP Family Medicine; Visit Provider Family Medicine
DX: Z12.31 Encounter for screening mammogram for malignant neoplasm of breast (principal); R92.323 Mammographic fibroglandular density, bilateral breasts
CPT/HCPCS: 77063; 77067

== ENCOUNTER → 2024-12-12 07:04 | Outpatient (BNVA) | payer OTHER, SELFPAY | PROVIDERS: PCP Family Medicine; Visit Provider Student in an Organized Health Care Education/Training Program | DX: M65.4 Radial styloid tenosynovitis [de Quervain] (principal) | CPT/HCPCS: 73110 ==

== ENCOUNTER → 2025-01-02 09:54 | Outpatient (BNVA) | payer OTHER, SELFPAY | PROVIDERS: PCP Family Medicine; Visit Provider Nurse Practitioner Women's Health | DX: Z01.419 Encounter for gynecological examination (general) (routine) without abnormal findings (principal) | CPT/HCPCS: 87624; 88305 ==

== ENCOUNTER 2025-02-05 05:00 | Outpatient (RCR) | payer OTHER, SELFPAY | END 2025-03-06 23:59 | disposition home or self-care (01) | LOC: SPT 05:00 | PROVIDERS: PCP Family Medicine; Visit Provider Family Medicine | DX: M54.2 Cervicalgia (principal) | CPT/HCPCS: 20560; 97110; 97161 ==

== ENCOUNTER 2025-03-06 14:33 | Outpatient (CLI) | payer OTHER, SELFPAY ==
--- NOTE | 2025-03-06 15:00 | USR_ITS ---
PROCEDURE INFORMATION: Exam: US Pelvis Complete, Transabdominal and US Duplex Artery and Vein, Ovaries, Complete Exam date and time: 03/06/2025 3:17 PM Age: 49 years old Clinical indication: Menstruation abnormalities; Infrequent/light menstruation; Additional info: N92.0 - excessive and frequent menstruation with regular . . . TECHNIQUE: Imaging protocol: Real-time transabdominal pelvic ultrasound (non-obstetric) with image documentation. Real-time duplex ultrasound scan of the arterial and venous flow of the ovaries with B-mode, color Doppler flow and spectral waveform analysis. Complete pelvic ultrasound. Complete duplex. Duplex exam was performed to evaluate for torsion and other vascular conditions. COMPARISON: US pelv w/transvag [id number] 12/15/2021 8:18 AM FINDINGS: Uterus: The uterus is homogeneous in echotexture. It measures 7.5 x 4.8 x 5.4 cm. Endometrial stripe is linear and homogeneous measuring maximal thickness of 10 mm. There are small nabothian cysts in the region of the cervix. Right ovary/adnexa: The right ovary measures 4.3 x 3.9 x 4 cm. There is normal color spectral Doppler flow. Left ovary/adnexa: The left ovary was not identified. Intraperitoneal space: There is no free fluid. Urinary bladder: Normal. US/US pelv w/transvag [id number] IMPRESSION: 1. No acute process 2. Left ovary not identified on this exam.
== END 2025-03-06 14:34 | disposition home or self-care (01) ==
PROVIDERS: PCP Family Medicine; Visit Provider Nurse Practitioner Women's Health
DX: N92.0 Excessive and frequent menstruation with regular cycle (principal)
CPT/HCPCS: 76830; 76856

== ENCOUNTER 2025-03-07 05:00 | Outpatient (RCR) | payer OTHER, SELFPAY | END 2025-04-06 23:59 | disposition home or self-care (01) | LOC: SPT 05:00 | PROVIDERS: PCP Family Medicine; Visit Provider Family Medicine | DX: M54.2 Cervicalgia (principal) | CPT/HCPCS: 20560; 97110 ==

== ENCOUNTER 2025-04-07 06:30 | Outpatient (RCR) | payer OTHER, SELFPAY | END 2025-04-25 14:36 | disposition home or self-care (01) | LOC: SPT 06:30 | PROVIDERS: PCP Family Medicine; Visit Provider Family Medicine | DX: M54.2 Cervicalgia (principal) | CPT/HCPCS: 20560; 97110 ==